=== PATIENT | male | born 1955 | race Caucasian/White ===

== ENCOUNTER 2016-12-27 15:34 | Emergency (ER) | payer MEDICARE, OTHER ==
[~2016-12-27] VITALS: Ht 195.6 cm; Wt 86.2 kg
[~2016-12-27 15:34] MED LIST: BREO ELLIPTA I1 EACH INH; FOLIC ACID1 MG PO; LATANOPROST2.5 ML OP; LEVOTHYROXINE125 MCG PO; LEVOTHYROXINE150 MCG PO; METOPROLOL SUCC50 MG PO; OMEPRAZOLE40 MG PO; TAMSULOSIN HCL0.4 MG PO; TRAMADOL HCL50 MG PO; VITAMIN B COMP1 EACH PO
--- NOTE | 2016-12-27 20:38 | EKG ---
[facility] [address] [facility] [place] [address] Signed Sinus tachycardia Left axis deviation Low voltage QRS Inferior infarct , age undetermined Cannot rule out Anterior infarct , age undetermined Abnormal ECG Confirmed by TASHI VALIENTE MD ([id number]) on 12/27/2016 8:37:53 PM Electronically Signed By: TASHI VALIENTE MD 12/27/16 2038 PATIENT NAME: ALDAESTEFANIA TRESA Electrocardiogram DATE OF : 51 PHYSICIAN: TASHI VALIENTE MD REPORT #: [id number] REPORT IS CONFIDENTIAL AND NOT TO BE RELEASED WITHOUT AUTHORIZATION
== END 2016-12-27 18:30 | disposition short-term general hospital (02) ==
LOC: ED 15:34
DX: E11.649 Type 2 diabetes mellitus with hypoglycemia without coma (principal); R41.82 Altered mental status, unspecified; I10 Essential (primary) hypertension; Z90.89 Acquired absence of other organs; Z88.0 Allergy status to penicillin; Z88.8 Allergy status to other drugs, medicaments and biological substances; Z79.899 Other long term (current) drug therapy; Z96.652 Presence of left artificial knee joint
CPT/HCPCS: 31500; 31720; 36600; 70450; 71010; 80053; 81001; 82550; 82553; 82803; 83605; 83874; 84484; 85025; 85610; 87040; 87077; 87088; 87186; 93005; 93010; 94002; 94799; 96374; 99285; G0480; J2370; J2704; J7030